=== PATIENT | male | born 1990 | race Caucasian/White ===

== ENCOUNTER 2020-05-17 05:04 | Inpatient (IN) | payer BC ==
[2020-05-17] MEDS ORDERED: Acetaminophen 500 MG Tab PO ONE (05:25)
[2020-05-17] MEDS ORDERED: Sodium Chloride 0.9% 1,000 ML IV ONE (05:25)
[2020-05-17] MEDS ORDERED: Ondansetron 4 MG/2 ML SDV IVPUSH ONE (05:29)
--- NOTE | 2020-05-17 05:31 | EDM.PDOC ---
<Isaac Bolton - Last Filed: 05/17/20 06:01> ED HPI GENERAL MEDICAL PROBLEM - General Chief Complaint: Respiratory Problem Stated Complaint: SOB(COVID POSITIVE) Time Seen by Provider: 05/17/20 05:28 Source of Information: Reports: Patient History Limitations: Reports: No Limitations - History of Present Illness INITIAL COMMENTS - FREE TEXT/NARRATIVE: Patient is a 29-year-old male who presents today for shortness of breath. Patient he tested positive for Covid Anahi and was sent home with steroids albuterol and antibiotics. Patient states has been using medications at home but since yesterday has been having a hard time breathing feeling as if he cannot take a deep breath. Patient denies any chest pain fevers chills or nausea vomiting. Patient has been able to tolerate p.o. but has not been eating as much as she normally does. - Related Data Allergies Allergy/AdvReac Type Severity Reaction Status Date / Time amoxicillin Allergy Cannot Verified 07/01/16 15:00 Remember morphine Allergy Hives Verified 07/01/16 15:00 Penicillins Allergy Cannot Verified 07/01/16 15:00 Remember Sulfa (Sulfonamide Allergy Cannot Verified 07/01/16 15:00 Antibiotics) Remember mushroom Allergy Other Uncoded 12/02/14 04:11 tuna Allergy Other Uncoded 12/02/14 04:11 Home Meds: Home Meds Albuterol [Ventolin HFA] 2 inh INH Q2HR PRN 12/02/14 [History] Budesonide/Formoterol Fumarate [Symbicort 160-4.5 Mcg Inhaler] 2 puff IH BID #1 canister 07/01/16 [Rx] Doxycycline Monohydrate 100 mg PO BID 05/17/20 [History] predniSONE [Prednisone] 20 mg PO DAILY 05/17/20 [History] Past Medical History - Past Health History Medical/Surgical History: Denies Medical/Surgical History HEENT History: Reports: None Cardiovascular History: Reports: None Respiratory History: Reports: Asthma Gastrointestinal History: Reports: None Genitourinary History: Reports: None Musculoskeletal History: Reports: None Neurological History: Reports: None Psychiatric History: Reports: None Endocrine/Metabolic History: Reports: Obesity/BMI 30+ Hematologic History: Reports: None Immunologic History: Reports: None Oncologic (Cancer) History: Reports: None Dermatologic History: Reports: None - Infectious Disease History Infectious Disease History: Reports: Chicken Pox - Past Surgical History Head Surgeries/Procedures: Reports: None Musculoskeletal Surgical History: Reports: Other (See Below) Other Musculoskeletal Surgeries/Procedures:: left wrist surgery for growth plate displacement Social & Family History - Family History Family Medical History: No Pertinent Family History - Caffeine Use Caffeine Use: Reports: Soda - Recreational Drug Use Recreational Drug Use: No ED ROS GENERAL - Review of Systems Review Of Systems: See Below Constitutional: Reports: No Symptoms HEENT: Reports: No Symptoms Respiratory: Reports: Shortness of Breath Cardiovascular: Reports: No Symptoms Endocrine: Reports: No Symptoms GI/Abdominal: Reports: No Symptoms : Reports: No Symptoms Musculoskeletal: Reports: No Symptoms Skin: Reports: No Symptoms Neurological: Reports: No Symptoms Psychiatric: Reports: No Symptoms Hematologic/Lymphatic: Reports: No Symptoms Immunologic: Reports: No Symptoms ED EXAM, GENERAL - Physical Exam Exam: See Below Exam Limited By: No Limitations General Appearance: Alert, No Apparent Distress Eye Exam: Bilateral Eye: EOMI, PERRL Respiratory/Chest: No Respiratory Distress, Lungs Clear Cardiovascular: Regular Rate, Rhythm GI/Abdominal: Normal Bowel Sounds, Soft, Non-Tender Extremities: Normal Range of Motion Neurological: Alert, Oriented, CN II-XII Intact, Normal Cognition Course - Re-Assessments/Exams Free Text/Narrative Re-Assessment/Exam: 05/17/20 06:01 Patient does have elevated D-dimer. Will send for a CT PE. Departure - Departure Disposition: Admitted As Inpatient 67 Clinical Impression: Pneumonia, COVID-19, Failure of outpatient treatment, Hypoxia - Discharge Information Instructions: COVID-19 Referrals: Anabela Martinez DO [Primary Care Provider] - Forms: ED Department Discharge Sepsis Event Note (ED) - Evaluation Sepsis Screening Result: Possible Sepsis Risk - Assessment/Plan Plan: Is a 29-year-old male who recently test positive Covid presents today for shortness of breath. When patient arrived to the ED his O2 sat was 79% on room air after walking from the front to the room. Patient was placed on a nonrebreather and oxygen level improved to 99% patient was then transitioned to a nasal cannula of oxygen level was 93%. Patient will have Tylenol labs IV fluids antibiotics and reassess. <Raul Murillo - Last Filed: 05/17/20 07:53> #1 Interpretation EKG Interpretation Comments: Heart rate = 104 bpm, sinus tach, normal QRS interval, no STEMI. EKG and rhythm strip interpreted by me at 0549 Course - Vital Signs Last Recorded V/S: Last Vital Signs Temp 100.4 F 05/17/20 07:09 Pulse 103 H 05/17/20 07:09 Resp 20 05/17/20 07:09 BP 132/73 05/17/20 07:09 Pulse Ox 95 05/17/20 07:09 - Orders/Labs/Meds Orders: Active Orders 24 hr Category Date Time Status Patient Status [ADT] Routine ADT 05/17/20 07:49 Ordered EKG 12 Lead [EKG Documentation Completion] [RC] STAT Care 05/17/20 05:31 Active CULTURE BLOOD [BC] Stat Lab 05/17/20 05:26 Results CULTURE BLOOD [BC] Stat Lab 05/17/20 05:45 Received UA W/ADITI RFLX IF INDICATED [URIN] Stat Lab 05/17/20 05:25 Ordered Levofloxacin/Dextrose 5%-Water [Levaquin in D5W 750 MG/ Med 05/17/20 06:29 Active 150 ML] 750 mg Premix Bag 1 bag IV ONETIME Blood Culture x2 Reflex Set [OM.PC] Stat Oth 05/17/20 05:35 Ordered Medication Orders Levofloxacin/Dextrose 750 mg/ (Premix) 150 mls @ 100 mls/hr IV ONETIME ONE Stop: 05/17/20 07:58 Last Admin: 05/17/20 07:03 Dose: 100 mls/hr Documented by: FRANSISCA Labs: Laboratory Tests 05/17/20 05/17/20 05/17/20 Range/Units 05:26 05:26 05:26 WBC 4.21 (4.0-11.0) K/uL RBC 5.01 (4.50-5.90) M/uL Hgb 14.5 (13.0-17.0) g/dL Hct 45.0 (38.0-50.0) % MCV 89.8 (80.0-98.0) fL MCH 28.9 (27.0-32.0) pg MCHC 32.2 (31.0-37.0) g/dL RDW Std Deviation 44.5 (28.0-62.0) fl RDW Coeff of Mick 14 (11.0-15.0) % Plt Count 152 (150-400) K/uL MPV 10.30 (7.40-12.00) fL Neut % (Auto) 69.3 (48.0-80.0) % Lymph % (Auto) 23.8 (16.0-40.0) % Reeves % (Auto) 6.9 (0.0-15.0) % Eos % (Auto) 0.0 (0.0-7.0) % Baso % (Auto) 0.0 (0.0-1.5) % Neut # (Auto) 2.9 (1.4-5.7) K/uL Lymph # (Auto) 1.0 (0.6-2.4) K/uL Reeves # (Auto) 0.3 (0.0-0.8) K/uL Eos # (Auto) 0.0 (0.0-0.7) K/uL Baso # (Auto) 0.0 (0.0-0.1) K/uL Nucleated RBC % 0.0 /100WBC Nucleated RBCs # 0 K/uL INR 0.98 APTT 26.7 (18.6-31.3) SEC D-Dimer, Quantitative 0.62 H (0.0-0.50) mg/L FEU Sodium 139 (136-148) mmol/L Potassium 4.0 (3.5-5.1) mmol/L Chloride 102 (98-107) mmol/L Carbon Dioxide 28.8 (21.0-32.0) mmol/L BUN 13 (7.0-18.0) mg/dL Creatinine 1.1 (0.8-1.3) mg/dL Est Cr Clr Drug Dosing 112.99 mL/min Estimated GFR (MDRD) > 60.0 ml/min Glucose 118 H (74-106) mg/dL Calcium 8.5 (8.5-10.1) mg/dL Total Bilirubin 0.8 (0.2-1.0) mg/dL AST 42 H (15-37) IU/L ALT 50 (14-63) IU/L Alkaline Phosphatase 50 (46-116) U/L Creatine Kinase 98 (26-308) U/L Troponin I < 0.050 (0.000-0.056) ng/mL Total Protein 6.9 (6.4-8.2) g/dL Albumin 3.0 L (3.4-5.0) g/dL Globulin 3.9 (2.6-4.0) g/dL Albumin/Globulin Ratio 0.8 L (0.9-1.6) Meds: Medications Generic Name Dose Route Start Last Admin Trade Name Freq PRN Reason Stop Dose Admin Levofloxacin/Dextrose 750 mg/ 150 mls @ 100 mls/hr 05/17/20 06:29 05/17/20 07:03 Premix IV 05/17/20 07:58 100 mls/hr ONETIME ONE Administration Discontinued Medications Generic Name Dose Route Start Last Admin Trade Name Freq PRN Reason Stop Dose Admin Acetaminophen 1,000 mg 05/17/20 05:25 05/17/20 05:39 Tylenol Extra Strength PO 05/17/20 05:26 1,000 mg ONETIME ONE Administration Sodium Chloride 1,000 mls @ 999 mls/hr 05/17/20 05:25 05/17/20 05:36 Normal Saline IV 05/17/20 06:25 999 mls/hr .BOLUS ONE Administration Iopamidol 100 ml 05/17/20 07:06 05/17/20 07:07 Isovue Multipack-370 (76%) IVPUSH 05/17/20 07:07 100 ml ONETIME STA Administration Ondansetron HCl 4 mg 05/17/20 05:29 05/17/20 05:39 Zofran IVPUSH 05/17/20 05:30 4 mg ONETIME ONE Administration - Re-Assessments/Exams Free Text/Narrative Re-Assessment/Exam: 05/17/20 0700 This patient was signed out to me from Dr. Bolton at this time. I promptly performed a detailed physical examination, my examination was performed after ED treatments were initiated by the signout provider. Patient has been under the care of the previous provider up until this point. 05/17/[address] Yanes, who agrees to admit patient. The hospitalist's documentation supersedes all other documentation on this patient with regard to any conflicts or discrepancies from this point forward. Any emergency conditions have been treated to the ability of the ED prior to admission. Departure - Departure Time of Disposition: 07:52 Condition: Good - Discharge Information *PRESCRIPTION DRUG MONITORING PROGRAM REVIEWED*: Not Applicable *COPY OF PRESCRIPTION DRUG MONITORING REPORT IN PATIENT NELLIE: Not Applicable Critical Care Note - Critical Care Note Total Time (mins): 40 Comments: CRITCAL CARE: The high probability of sudden, clinically significant deterioration in the patient's condition required the highest level of my preparedness to intervene urgently. The services I provided to this patient were to treat and/or prevent clinically significant deterioration. Services included the following: chart data review, reviewing nursing notes and/or old charts, documentation time, data power consultant collaboration regarding findings and treatment options, medication orders and management, direct patient care, vital sign assessments and ordering, interpreting and reviewing diagnostic studies/lab tests. Aggregate critical care time includes only time during which I was engaged in work directly related to the patient's care, as described above, whether at the bedside or elsewhere in the Emergency Department. It did not include time spent performing other reported procedures or the services of residents, students, nurses or physician assistants. Frequent interventions and/or frequent repeat evaluations were required as well as counseling and coordination of care regarding prognosis, treatments, and discussions with patient, staff and consultants. Critical Care (excluding other procedures): 40 minutes Sepsis Event Note (ED) - Focused Exam Vital Signs: Vital Signs Temp Temp Pulse Resp BP Pulse Ox 05/17/20 07:09 100.4 F 103 H 20 132/73 95 05/17/20 06:18 99.8 F 103 H 20 158/89 H 95 05/17/20 05:39 103 F H 05/17/20 05:18 103 F H 117 H 40 H 158/89 H 72 L - My Orders Last 24 Hours: My Active Orders 05/17/20 07:49 Patient Status [ADT] Routine - Assessment/Plan Last 24 Hours: My Active Orders 05/17/20 07:49 Patient Status [ADT] Routine
[2020-05-17 05:50] LABS: BLOOD UREA NITROGEN,BUN 13 mg/dL (7.0-18.0); CARBON DIOXIDE,CO2 28.8 mmol/L (21.0-32.0); GLUCOSE RANDOM 118 mg/dL (74-106)
[2020-05-17 05:54] LABS: CHLORIDE,CL 102 mmol/L (98-107); SODIUM,NA 139 mmol/L (136-148)
--- NOTE | 2020-05-17 06:26 | CR ---
INDICATION: COVID positive with hypoxia COMPARISON: December 02, 2014 TECHNIQUE: Single-view chest radiograph obtained portably FINDINGS: TUBES AND LINES: None. HEART AND MEDIASTINUM: The heart size is normal. The mediastinal contour appears normal for patient age. LUNGS AND PLEURAL SPACES: Moderate diffuse multifocal airspace disease bilaterally, right greater than left.The pleural spaces are unremarkable. OSSEOUS STRUCTURES: Age-appropriate appearance. No acute focal finding. IMPRESSION: Moderate diffuse multifocal airspace disease bilaterally, right greater than left. No pleural effusion or pneumothorax. Nonspecific but compatible with the clinical history of COVID lung disease Dictated by Henrique Burton MD @ May 17 2020 6:23AM Signed by Dr. Henrique Burton @ May 17 2020 6:24AM
[2020-05-17] MEDS ORDERED: Levofloxacin/Dextrose 5%-Water 750 MG in Premix Bag 1 BAG IV ONE (06:29)
[2020-05-17] MEDS ORDERED: Iopamidol 755 MG/ML 500 ML Multipack Bottle IVPUSH STA (07:06)
--- NOTE | 2020-05-17 07:30 | CT ---
INDICATION: Dyspnea and elevated D-dimer. COVID positive. COMPARISON: None TECHNIQUE: : CT examination of the chest was performed with the uneventful intravenous administration of 100 cc of Isovue 370 while thin axial sections were obtained from above the apices of the lungs to the lung bases. Please note that all CT scans at this facility use dose modulation, iterative reconstruction, and/or weight-based dosing when appropriate to reduce radiation dose to as low as reasonably achievable. FINDINGS: : HEART and MEDIASTINUM: The heart size is normal. There is no mediastinal or hilar adenopathy or mass. There is no pericardial effusion. PULMONARY ARTERIAL CIRCULATION: The study is limited due to respiratory motion artifact and significant soft tissue attenuation associated with patient`s body habitus. I see no large central pulmonary embolus. Smaller more peripheral emboli might be inapparent on this study. LUNGS: Moderate diffuse multifocal ground-glass opacities in a roughly bilateral and symmetric distribution. Nonspecific but probably due to COVID related lung disease. PLEURAL SPACES: There is no pleural effusion, pneumothorax or pleural based mass. VISUALIZED UPPER ABDOMEN: Hepatic steatosis. Otherwise, the limited visualized upper abdominal structures appear normal. OSSEOUS STRUCTURES: Age-appropriate appearance. No acute fracture or destructive process. TUBES and LINES: None. IMPRESSION: 1. Moderate diffuse multifocal ground-glass opacification. Normal appearing pleural spaces. The pattern is nonspecific but probably due to COVID related lung disease. 2. The study is limited due to technical factors discussed above regarding the presence or absence of pulmonary embolic disease. I see no large central pulmonary embolus. Smaller more peripheral emboli might be inapparent on this study. Please note that all CT scans at this facility use dose modulation, iterative reconstruction, and/or weight-based dosing when appropriate to reduce radiation dose to as low as reasonably achievable. Dictated by Henrique Burton MD @ May 17 2020 7:22AM Signed by Dr. Henrique Burton @ May 17 2020 7:27AM
[2020-05-17] MEDS ORDERED: Acetaminophen 325 MG Tab PO PRN (08:00)
[2020-05-17] MEDS ORDERED: Enoxaparin 40 MG/0.4 ML Syringe SUBCUT SCH (08:00)
[2020-05-17] MEDS ORDERED: REMDESIVIR 200 MG in Sodium Chloride 0.9% 250 ML IV ONE (08:02)
[2020-05-17] MEDS ORDERED: Albuterol/Ipratropium 4 GM Inhalation Spray INH PRN (08:02)
--- NOTE | 2020-05-17 08:04 | PCM.HP.2 ---
<Jovi Perea - Last Filed: 05/17/20 16:53> H&P History of Present Illness - General Date of Service: 05/17/20 Admit Problem/Dx: Admission Diagnosis/Problem Admission Diagnosis/Problem Pneumonia - History of Present Illness Initial Comments - Free Text/Narative: 29 year old male admitted for acute hypoxic respiratory failure secondary to COVID-19 infection. Patient states that he tested positive for Covid this past Sunday and was treated with steroids, albuterol, antibiotics. Patient presented to the ED with significant shortness of breath despite using all prescribed medications. Patient denies chest pain, fever, chills, nausea, vomiting, diarrhea. Patient states decreased appetite. PMH asthma. On admission patient required 5 L oxygen via nasal cannula with oxygen saturati on 94%. WBC 4.2, D-dimer elevated 0.62, CTA negative for pulmonary embolism but does show moderate diffuse multifocal groundglass opacifications, suggestive of COVID-19 infection. Patient started on remdesivir, dexamethasone, Combivent, Lovenox 40mg BID, oxygen support, encouraged to use incentive spirometry. - Related Data Allergies/Adverse Reactions: Allergies Allergy/AdvReac Type Severity Reaction Status Date / Time amoxicillin Allergy Cannot Verified 05/17/20 09:44 Remember morphine Allergy Hives Verified 05/17/20 09:44 Penicillins Allergy Cannot Verified 05/17/20 09:44 Remember Sulfa (Sulfonamide Allergy Cannot Verified 05/17/20 09:44 Antibiotics) Remember mushroom Allergy Other Uncoded 05/17/20 09:44 tuna Allergy Other Uncoded 05/17/20 09:44 Home Medications: Home Meds Albuterol [Ventolin HFA] 2 inh INH Q4H PRN 12/02/14 [History] Budesonide/Formoterol Fumarate [Symbicort 160-4.5 Mcg Inhaler] 2 puff IH BID #1 canister 07/01/16 [Rx] Doxycycline Monohydrate 100 mg PO BID 05/17/20 [History] predniSONE [Prednisone] 20 mg PO DAILY 05/17/20 [History] Past Medical History - Past Health History Medical/Surgical History: Denies Medical/Surgical History HEENT History: Reports: None Cardiovascular History: Reports: None Respiratory History: Reports: Asthma Gastrointestinal History: Reports: None Genitourinary History: Reports: None Musculoskeletal History: Reports: None Neurological History: Reports: None Psychiatric History: Reports: None Endocrine/Metabolic History: Reports: Obesity/BMI 30+ Hematologic History: Reports: None Immunologic History: Reports: None Oncologic (Cancer) History: Reports: None Dermatologic History: Reports: None - Infectious Disease History Infectious Disease History: Reports: Chicken Pox - Past Surgical History Head Surgeries/Procedures: Reports: None Musculoskeletal Surgical History: Reports: Other (See Below) Other Musculoskeletal Surgeries/Procedures:: left wrist surgery for growth plate displacement Social & Family History - Family History Family Medical History: No Pertinent Family History - Caffeine Use Caffeine Use: Reports: Soda - Recreational Drug Use Recreational Drug Use: No H&P Review of Systems - Review of Systems: Review Of Systems: See Below General: Denies: Fever, Chills Pulmonary: Reports: Shortness of Breath. Denies: Wheezing Cardiovascular: Denies: Chest Pain, Palpitations Gastrointestinal: Reports: Decreased Appetite. Denies: Abdominal Pain, Diarrhea Musculoskeletal: Denies: Back Pain Neurological: Denies: Confusion, Dizziness, Headache Exam - Exam Exam: See Below - Vital Signs Vital Signs: Last Vital Signs Temp 100.4 F 05/17/20 07:09 Pulse 103 H 05/17/20 07:09 Resp 20 05/17/20 07:09 BP 132/73 05/17/20 07:09 Pulse Ox 95 05/17/20 07:09 Weight: 170.097 kg - Exam General: Alert, Oriented Lungs: Clear to Auscultation, Normal Respiratory Effort Cardiovascular: Regular Rate, Regular Rhythm GI/Abdominal Exam: Normal Bowel Sounds, Non-Tender Neuro Extensive - Mental Status: Alert, Oriented x3 Psychiatric: Alert - Patient Data Lab Results Last 24 hrs: Laboratory Results - last 24 hr 05/17/20 05/17/20 05/17/20 Range/Units 05:26 05:26 05:26 WBC 4.21 (4.0-11.0) K/uL RBC 5.01 (4.50-5.90) M/uL Hgb 14.5 (13.0-17.0) g/dL Hct 45.0 (38.0-50.0) % MCV 89.8 (80.0-98.0) fL MCH 28.9 (27.0-32.0) pg MCHC 32.2 (31.0-37.0) g/dL RDW Std Deviation 44.5 (28.0-62.0) fl RDW Coeff of Mick 14 (11.0-15.0) % Plt Count 152 (150-400) K/uL MPV 10.30 (7.40-12.00) fL Neut % (Auto) 69.3 (48.0-80.0) % Lymph % (Auto) 23.8 (16.0-40.0) % [place] % (Auto) 6.9 (0.0-15.0) % Eos % (Auto) 0.0 (0.0-7.0) % Baso % (Auto) 0.0 (0.0-1.5) % Neut # (Auto) 2.9 (1.4-5.7) K/uL Lymph # (Auto) 1.0 (0.6-2.4) K/uL [place] # (Auto) 0.3 (0.0-0.8) K/uL Eos # (Auto) 0.0 (0.0-0.7) K/uL Baso # (Auto) 0.0 (0.0-0.1) K/uL Nucleated RBC % 0.0 /100WBC Nucleated RBCs # 0 K/uL INR 0.98 APTT 26.7 (18.6-31.3) SEC D-Dimer, Quantitative 0.62 H (0.0-0.50) mg/L FEU Sodium 139 (136-148) mmol/L Potassium 4.0 (3.5-5.1) mmol/L Chloride 102 (98-107) mmol/L Carbon Dioxide 28.8 (21.0-32.0) mmol/L BUN 13 (7.0-18.0) mg/dL Creatinine 1.1 (0.8-1.3) mg/dL Est Cr Clr Drug Dosing 112.99 mL/min Estimated GFR (MDRD) > 60.0 ml/min Glucose 118 H (74-106) mg/dL Calcium 8.5 (8.5-10.1) mg/dL Total Bilirubin 0.8 (0.2-1.0) mg/dL AST 42 H (15-37) IU/L ALT 50 (14-63) IU/L Alkaline Phosphatase 50 (46-116) U/L Creatine Kinase 98 (26-308) U/L Troponin I < 0.050 (0.000-0.056) ng/mL Total Protein 6.9 (6.4-8.2) g/dL Albumin 3.0 L (3.4-5.0) g/dL Globulin 3.9 (2.6-4.0) g/dL Albumin/Globulin Ratio 0.8 L (0.9-1.6) Result Diagrams: 05/17/20 05:26 05/17/20 05:26 Ricardo Results Last 24 hrs: Microbiology 05/17/20 05:26 Anaerobic Blood Culture - Final Blood - Venous Sepsis Event Note - Evaluation Sepsis Screening Result: Possible Sepsis Risk - Focused Exam Vital Signs: Vital Signs Temp Temp Pulse Resp BP Pulse Ox 05/17/20 07:09 100.4 F 103 H 20 132/73 95 05/17/20 06:18 99.8 F 103 H 20 158/89 H 95 05/17/20 05:39 103 F H 05/17/20 05:18 103 F H 117 H 40 H 158/89 H 72 L - Problem List (1) COVID-19 SNOMED Code(s): 858763943 ICD Code: U07.1 - COVID-19 Status: Acute Current Visit: Yes (2) Failure of outpatient treatment SNOMED Code(s): 486179870 ICD Code: Z78.9 - OTHER SPECIFIED HEALTH STATUS Status: Acute Current Visit: Yes (3) Hypoxia SNOMED Code(s): 873970842 ICD Code: R09.02 - HYPOXEMIA Status: Acute Current Visit: Yes (4) Pneumonia SNOMED Code(s): 097048351 ICD Code: J18.9 - PNEUMONIA, UNSPECIFIED ORGANISM Status: Acute Current Visit: Yes Problem List Initiated/Reviewed/Updated: Yes Orders Last 24hrs: Active Orders 24 hr Category Date Time Status Patient Status [ADT] Routine ADT 05/17/20 07:49 Active Oxygen Therapy [RC] PRN Care 05/17/20 08:00 Ordered RT Post Treatment Assessment [RC] Click to Edit Care 05/17/20 08:03 Ordered RT Pre-Treatment Assessment [RC] Click to Edit Care 05/17/20 08:03 Ordered VTE/DVT Education [RC] PER UNIT ROUTINE Care 05/17/20 08:00 Ordered Heart Healthy Diet [DIET] Diet 05/17/20 Breakfast Ordered CULTURE BLOOD [BC] Stat Lab 05/17/20 05:26 Results CULTURE BLOOD [BC] Stat Lab 05/17/20 05:45 Received HEPATIC FUNCTION PANEL,[facility] [CHEM] DAILY Lab 05/18/20 08:15 Ordered HEPATIC FUNCTION PANEL,HFP [CHEM] DAILY Lab 05/19/20 08:15 Ordered HEPATIC FUNCTION PANEL,HFP [CHEM] DAILY Lab 05/20/20 08:15 Ordered HEPATIC FUNCTION PANEL,HFP [CHEM] DAILY Lab 05/21/20 08:15 Ordered HEPATIC FUNCTION PANEL,[facility] [CHEM] Stat Lab 05/17/20 08:02 Ordered UA W/RICARDO RFLX IF INDICATED [URIN] Stat Lab 05/17/20 05:25 Ordered Acetaminophen [TylenoL] Med 05/17/20 08:00 Ordered 650 mg PO Q4H PRN Albuterol/Ipratropium [Combivent Respimat] Med 05/17/20 08:02 Ordered See Dose Instructions INH Q4H PRN Enoxaparin [Lovenox] Med 05/17/20 08:00 Ordered 40 mg SUBCUT Q24H Remdesivir 200 mg Med 05/17/20 08:02 Ordered Sodium Chloride 0.9% [Normal Saline] 250 ml IV ONETIME dexAMETHasone Med 05/17/20 09:00 Ordered 6 mg PO DAILY Blood Culture x2 Reflex Set [OM.PC] Stat Oth 05/17/20 05:35 Ordered Medication Orders Acetaminophen (Tylenol) 650 mg PO Q4H PRN PRN Reason: Pain (Mild 1-3)/fever Albuterol/Ipratropium (Combivent Respimat) 0 gm INH Q4H PRN PRN Reason: Dyspnea Dexamethasone (Dexamethasone) 6 mg PO DAILY MARYANA Enoxaparin Sodium (Lovenox) 40 mg SUBCUT Q24H MARYANA Remdesivir 200 mg/ Sodium (Chloride) 250 mls @ 250 mls/hr IV ONETIME ONE Stop: 05/17/20 08:03 Assessment/Plan Comment:: COVID-19 infection remdesivir, dexamethasone, Combivent, Lovenox 40 mg BID, encourage incentive spirometry, oxygen support as needed, telemetry <Vicky Yanes - Last Filed: 05/18/20 12:45> H&P History of Present Illness - General Admit Problem/Dx: Admission Diagnosis/Problem Admission Diagnosis/Problem Pneumonia Exam - Vital Signs Vital Signs: Last Vital Signs Temp 37.1 C 05/18/20 11:57 Pulse 98 05/18/20 11:57 Resp 20 05/18/20 11:57 BP 138/61 05/18/20 11:57 Pulse Ox 92 L 05/18/20 11:57 - Patient Data Lab Results Last 24 hrs: Laboratory Results - last 24 hr 05/18/20 05/18/20 Range/Units 06:03 06:03 WBC 4.65 (4.0-11.0) K/uL RBC 4.63 (4.50-5.90) M/uL Hgb 13.4 (13.0-17.0) g/dL Hct 42.3 (38.0-50.0) % MCV 91.4 (80.0-98.0) fL MCH 28.9 (27.0-32.0) pg MCHC 31.7 (31.0-37.0) g/dL RDW Std Deviation 45.7 (28.0-62.0) fl RDW Coeff of Mick 14 (11.0-15.0) % Plt Count 160 (150-400) K/uL MPV 10.50 (7.40-12.00) fL Neut % (Auto) 68.4 (48.0-80.0) % Lymph % (Auto) 22.4 (16.0-40.0) % [place] % (Auto) 9.0 (0.0-15.0) % Eos % (Auto) 0.0 (0.0-7.0) % Baso % (Auto) 0.2 (0.0-1.5) % Neut # (Auto) 3.2 (1.4-5.7) K/uL Lymph # (Auto) 1.0 (0.6-2.4) K/uL [place] # (Auto) 0.4 (0.0-0.8) K/uL Eos # (Auto) 0.0 (0.0-0.7) K/uL Baso # (Auto) 0.0 (0.0-0.1) K/uL Nucleated RBC % 0.0 /100WBC Nucleated RBCs # 0 K/uL Sodium 139 (136-148) mmol/L Potassium 3.6 (3.5-5.1) mmol/L Chloride 102 (98-107) mmol/L Carbon Dioxide 30.0 (21.0-32.0) mmol/L BUN 15 (7.0-18.0) mg/dL Creatinine 1.0 (0.8-1.3) mg/dL Est Cr Clr Drug Dosing 124.29 mL/min Estimated GFR (MDRD) > 60.0 ml/min Glucose 102 (74-106) mg/dL Calcium 8.1 L (8.5-10.1) mg/dL Total Bilirubin 0.8 (0.2-1.0) mg/dL AST 40 H (15-37) IU/L ALT 43 (14-63) IU/L Alkaline Phosphatase 42 L (46-116) U/L Total Protein 6.2 L (6.4-8.2) g/dL Albumin 2.7 L (3.4-5.0) g/dL Globulin 3.5 (2.6-4.0) g/dL Albumin/Globulin Ratio 0.8 L (0.9-1.6) Result Diagrams: 05/18/20 06:03 05/18/20 06:03 Ricardo Results Last 24 hrs: Microbiology 05/17/20 05:45 Aerobic Blood Culture - Preliminary Blood - Venous - Lab Draw NO GROWTH AFTER 1 DAY Anaerobic Blood Culture - Preliminary NO GROWTH AFTER 1 DAY 05/17/20 05:26 Aerobic Blood Culture - Preliminary Blood - Venous NO GROWTH AFTER 1 DAY Anaerobic Blood Culture - Final Sepsis Event Note - Focused Exam Vital Signs: Vital Signs Temp Pulse Resp BP Pulse Ox 05/18/20 11:57 37.1 C 98 20 138/61 92 L 05/18/20 09:40 37.0 C 105 H 20 147/80 H 92 L 05/18/20 03:30 37.2 C 89 19 123/69 93 L - Problem List (1) Acute respiratory failure with hypoxia SNOMED Code(s): 30044645, 509102785 ICD Code: J96.01 - ACUTE RESPIRATORY FAILURE WITH HYPOXIA Status: Acute Current Visit: Yes (2) COVID-19 SNOMED Code(s): 550540728 ICD Code: U07.1 - COVID-19 Status: Acute Current Visit: Yes (3) Failure of outpatient treatment SNOMED Code(s): 587142578 ICD Code: Z78.9 - OTHER SPECIFIED HEALTH STATUS Status: Acute Current Visit: Yes (4) BMI 50.0-59.9, adult SNOMED Code(s): 237294717, 119742145 ICD Code: Z68.43 - BODY MASS INDEX [BMI] 50.0-59.9, ADULT Status: Acute Current Visit: Yes Orders Last 24hrs: Active Orders 24 hr Category Date Time Status HEPATIC FUNCTION PANEL,HFP [CHEM] DAILY Lab 05/19/20 08:15 Ordered HEPATIC FUNCTION PANEL,HFP [CHEM] DAILY Lab 05/20/20 08:15 Ordered HEPATIC FUNCTION PANEL,HFP [CHEM] DAILY Lab 05/21/20 08:15 Ordered Enoxaparin [Lovenox] Med 05/17/20 21:00 Active 40 mg SUBCUT BID Flu Vacc [id number](6Mos Up)/Pf [Fluzone Quad Med 05/19/20 10:30 Once Syringe] 60 mcg IM .ONCE ONE Remdesivir 100 mg Med 05/18/20 11:00 Active Sodium Chloride 0.9% [Normal Saline] 100 ml IV Q24H Code Status [Resuscitation Status] Routine Resus Stat 05/18/20 11:33 Ordered Medication Orders Acetaminophen (Tylenol) 650 mg PO Q4H PRN PRN Reason: Pain (Mild 1-3)/fever Albuterol/Ipratropium (Combivent Respimat) 0 gm INH Q4H PRN PRN Reason: Dyspnea Dexamethasone (Dexamethasone) 6 mg PO DAILY [facility] Last Admin: 05/18/20 09:43 Dose: 6 mg Documented by: Admin: 05/17/20 09:00 Dose: 6 mg Documented by: THU Enoxaparin Sodium (Lovenox) 40 mg SUBCUT BID [facility] Last Admin: 05/18/20 09:44 Dose: 40 mg Documented by: Admin: 05/17/20 21:05 Dose: 40 mg Documented by: HILARY Remdesivir 100 mg/ Sodium (Chloride) 100 mls @ 100 mls/hr IV Q24H [facility] Stop: 05/21/20 11:59 Last Admin: 05/18/20 11:56 Dose: 100 mls/hr Documented by: JAMIL Influenza Virus Vaccine (Fluzone Quad Syringe) 60 mcg IM .ONCE ONE Stop: 05/19/20 10:31 Assessment/Plan Comment:: I performed a history and physical exam of the patient and discussed management with resident. I have reviewed the residents note and agree with documented findings and plan unless otherwise specified in my note.
[2020-05-17] MEDS: Dexamethasone 4 MG Tab PO SCH (09:00)
--- NOTE | 2020-05-17 19:06 | PCM.SN.2 ---
<Jovi Perea - Last Filed: 05/17/20 19:04> - Free Text/Narrative Note: Patient has denied convalescent plasma. Patient has apprehensions due to side effects, risk versus reward. All of patient's questions were answered and patient was made aware that convalescent plasma needs to be given as close as possible to the time of COVID-19 infection to be effective. Patient understands, still declines. <Vicky Yanes - Last Filed: 05/18/20 12:24> - Free Text/Narrative Note: I have seen and evaluated the patient and agree with the residents note unless specified in my note
[2020-05-17] MEDS: Enoxaparin 40 MG/0.4 ML Syringe SUBCUT SCH (21:05)
[2020-05-18 06:53] LABS: BLOOD UREA NITROGEN,BUN 15 mg/dL (7.0-18.0); CHLORIDE,CL 102 mmol/L (98-107); GLUCOSE RANDOM 102 mg/dL (74-106); POTASSIUM,K 3.6 mmol/L (3.5-5.1); SODIUM,NA 139 mmol/L (136-148)
[2020-05-18] MEDS: Dexamethasone 4 MG Tab PO SCH (09:43)
[2020-05-18] MEDS: Enoxaparin 40 MG/0.4 ML Syringe SUBCUT SCH ×2 (09:44→20:53)
[2020-05-18] MEDS: REMDESIVIR 100 MG in Sodium Chloride 0.9% 100 ML IV SCH (11:56)
[2020-05-18] MEDS ORDERED: REMDESIVIR 100 MG in Sodium Chloride 0.9% 100 ML IV SCH (12:00)
--- NOTE | 2020-05-18 22:50 | PCM.PN ---
<Jovi Perea - Last Filed: 05/18/20 20:48> - General Info Date of Service: 05/18/20 Subjective Update: Patient denies fever, chills, nausea, vomiting, diarrhea. Patient still states shortness of breath especially with ambulation. - Review of Systems General: Denies: Fever, Chills Pulmonary: Reports: Shortness of Breath (with ambulation). Denies: Cough Cardiovascular: Reports: Dyspnea on Exertion. Denies: Chest Pain, Palpitations Gastrointestinal: Denies: Abdominal Pain, Decreased Appetite, Diarrhea Neurological: Denies: Confusion, Dizziness, Headache - Patient Data Vitals - Most Recent: Last Vital Signs Temp 97.5 F 05/18/20 17:06 Pulse 92 05/18/20 17:06 Resp 20 05/18/20 17:06 BP 132/84 05/18/20 17:06 Pulse Ox 92 L 05/18/20 17:06 Weight - Most Recent: 185.066 kg I&O - Last 24 Hours: Intake & Output 05/18/20 05/18/20 05/18/20 06:59 14:59 22:59 Intake Total 1500 580 Output Total 0 Balance 1500 580 Lab Results Last 24 Hours: Laboratory Results - last 24 hr 05/18/20 05/18/20 Range/Units 06:03 06:03 WBC 4.65 (4.0-11.0) K/uL RBC 4.63 (4.50-5.90) M/uL Hgb 13.4 (13.0-17.0) g/dL Hct 42.3 (38.0-50.0) % MCV 91.4 (80.0-98.0) fL MCH 28.9 (27.0-32.0) pg MCHC 31.7 (31.0-37.0) g/dL RDW Std Deviation 45.7 (28.0-62.0) fl RDW Coeff of Mick 14 (11.0-15.0) % Plt Count 160 (150-400) K/uL MPV 10.50 (7.40-12.00) fL Neut % (Auto) 68.4 (48.0-80.0) % Lymph % (Auto) 22.4 (16.0-40.0) % [place] % (Auto) 9.0 (0.0-15.0) % Eos % (Auto) 0.0 (0.0-7.0) % Baso % (Auto) 0.2 (0.0-1.5) % Neut # (Auto) 3.2 (1.4-5.7) K/uL Lymph # (Auto) 1.0 (0.6-2.4) K/uL [place] # (Auto) 0.4 (0.0-0.8) K/uL Eos # (Auto) 0.0 (0.0-0.7) K/uL Baso # (Auto) 0.0 (0.0-0.1) K/uL Nucleated RBC % 0.0 /100WBC Nucleated RBCs # 0 K/uL Sodium 139 (136-148) mmol/L Potassium 3.6 (3.5-5.1) mmol/L Chloride 102 (98-107) mmol/L Carbon Dioxide 30.0 (21.0-32.0) mmol/L BUN 15 (7.0-18.0) mg/dL Creatinine 1.0 (0.8-1.3) mg/dL Est Cr Clr Drug Dosing 124.29 mL/min Estimated GFR (MDRD) > 60.0 ml/min Glucose 102 (74-106) mg/dL Calcium 8.1 L (8.5-10.1) mg/dL Total Bilirubin 0.8 (0.2-1.0) mg/dL AST 40 H (15-37) IU/L ALT 43 (14-63) IU/L Alkaline Phosphatase 42 L (46-116) U/L Total Protein 6.2 L (6.4-8.2) g/dL Albumin 2.7 L (3.4-5.0) g/dL Globulin 3.5 (2.6-4.0) g/dL Albumin/Globulin Ratio 0.8 L (0.9-1.6) Ricardo Results Last 24 Hours: Microbiology 05/17/20 05:45 Aerobic Blood Culture - Preliminary Blood - Venous - Lab Draw NO GROWTH AFTER 1 DAY Anaerobic Blood Culture - Preliminary NO GROWTH AFTER 1 DAY 05/17/20 05:26 Aerobic Blood Culture - Preliminary Blood - Venous NO GROWTH AFTER 1 DAY Anaerobic Blood Culture - Final Med Orders - Current: Current Medications Acetaminophen (Tylenol) 650 mg PO Q4H PRN PRN Reason: Pain (Mild 1-3)/fever Albuterol/Ipratropium (Combivent Respimat) 0 gm INH Q4H PRN PRN Reason: Dyspnea Dexamethasone (Dexamethasone) 6 mg PO DAILY [facility] Last Admin: 05/18/20 09:43 Dose: 6 mg Documented by: Enoxaparin Sodium (Lovenox) 40 mg SUBCUT BID [facility] Last Admin: 05/18/20 09:44 Dose: 40 mg Documented by: Remdesivir 100 mg/ Sodium (Chloride) 100 mls @ 100 mls/hr IV Q24H [facility] Stop: 05/21/20 11:59 Last Admin: 05/18/20 11:56 Dose: 100 mls/hr Documented by: Influenza Virus Vaccine (Fluzone Quad Syringe) 60 mcg IM .ONCE ONE Stop: 05/19/20 10:31 Discontinued Medications Acetaminophen (Tylenol Extra Strength) 1,000 mg PO ONETIME ONE Stop: 05/17/20 05:26 Last Admin: 05/17/20 05:39 Dose: 1,000 mg Documented by: Enoxaparin Sodium (Lovenox) 40 mg SUBCUT Q24H [facility] Last Admin: 05/17/20 09:01 Dose: 40 mg Documented by: Sodium Chloride (Normal Saline) 1,000 mls @ 999 mls/hr IV .BOLUS ONE Stop: 05/17/20 06:25 Last Admin: 05/17/20 05:36 Dose: 999 mls/hr Documented by: Levofloxacin/Dextrose 750 mg/ (Premix) 150 mls @ 100 mls/hr IV ONETIME ONE Stop: 05/17/20 07:58 Last Admin: 05/17/20 07:03 Dose: 100 mls/hr Documented by: Remdesivir 200 mg/ Sodium (Chloride) 250 mls @ 250 mls/hr IV ONETIME ONE Stop: 05/17/20 08:03 Last Admin: 05/17/20 10:52 Dose: 250 mls/hr Documented by: Remdesivir 100 mg/ Sodium (Chloride) 100 mls @ 100 mls/hr IV Q24H [facility] Stop: 05/21/20 12:59 Influenza Virus Vaccine (Pharmacy To Dose - Influenza Vaccine) 1 each IM ONETIME ONE Stop: 05/17/20 10:21 Iopamidol (Isovue Multipack-370 (76%)) 100 ml IVPUSH ONETIME STA Stop: 05/17/20 07:07 Last Admin: 05/17/20 07:07 Dose: 100 ml Documented by: Ondansetron HCl (Zofran) 4 mg IVPUSH ONETIME ONE Stop: 05/17/20 05:30 Last Admin: 05/17/20 05:39 Dose: 4 mg Documented by: - Exam Quality Assessment: Supplemental Oxygen General: Alert, Oriented Lungs: Clear to Auscultation, Normal Respiratory Effort Cardiovascular: Regular Rate, Regular Rhythm GI/Abdominal Exam: Normal Bowel Sounds, Soft, Non-Tender Skin: Warm Psy/Mental Status: Alert Sepsis Event Note - Evaluation Sepsis Screening Result: No Definite Risk - Focused Exam Vital Signs: Vital Signs Temp Pulse Resp BP Pulse Ox 05/18/20 17:06 97.5 F 92 20 132/84 92 L 05/18/20 11:57 98.7 F 98 20 138/61 92 L 05/18/20 09:40 98.6 F 105 H 20 147/80 H 92 L - Problem List & Annotations (1) COVID-19 SNOMED Code(s): 964768252 Code(s): U07.1 - COVID-19 Status: Acute Current Visit: Yes (2) Failure of outpatient treatment SNOMED Code(s): 955847273 Code(s): Z78.9 - OTHER SPECIFIED HEALTH STATUS Status: Acute Current Visit: Yes (3) Hypoxia SNOMED Code(s): 779881068 Code(s): R09.02 - HYPOXEMIA Status: Acute Current Visit: Yes (4) Pneumonia SNOMED Code(s): 842203721 Code(s): J18.9 - PNEUMONIA, UNSPECIFIED ORGANISM Status: Acute Current Visit: Yes - Problem List Review Problem List Initiated/Reviewed/Updated: Yes - My Orders Last 24 Hours: My Active Orders 05/17/20 21:00 Enoxaparin [Lovenox] 40 mg SUBCUT BID 05/18/20 11:00 Remdesivir 100 mg Sodium Chloride 0.9% [Normal Saline] 100 ml IV Q24H 05/18/20 11:33 Code Status [Resuscitation Status] Routine 05/19/20 05:11 CBC WITH AUTO DIFF [HEME] AM CMP [COMPREHENSIVE METABOLIC PN,CMP] [CHEM] AM 05/19/20 08:15 HEPATIC FUNCTION PANEL,HFP [CHEM] DAILY 05/20/20 08:15 HEPATIC FUNCTION PANEL,HFP [CHEM] DAILY 05/21/20 08:15 HEPATIC FUNCTION PANEL,HFP [CHEM] DAILY - Plan Plan:: COVID-19 infection remdesivir, dexamethasone, Combivent, Lovenox 40 mg BID, encourage incentive spirometry, oxygen support as needed, telemetry. Patient denied convalescent plasma. <Vicky Yanes - Last Filed: 05/19/20 21:15> - Patient Data Vitals - Most Recent: Last Vital Signs Temp 35.9 C L 05/19/20 16:05 Pulse 92 05/19/20 16:05 Resp 18 05/19/20 16:05 BP 145/81 H 05/19/20 16:05 Pulse Ox 92 L 05/19/20 16:05 I&O - Last 24 Hours: Intake & Output 05/19/20 05/19/20 05/19/20 06:59 14:59 22:59 Intake Total 600 600 Output Total 1 Balance 599 600 Lab Results Last 24 Hours: Laboratory Results - last 24 hr 05/19/20 05/19/20 Range/Units 05:11 05:11 WBC 4.94 (4.0-11.0) K/uL RBC 4.64 (4.50-5.90) M/uL Hgb 13.2 (13.0-17.0) g/dL Hct 42.2 (38.0-50.0) % MCV 90.9 (80.0-98.0) fL MCH 28.4 (27.0-32.0) pg MCHC 31.3 (31.0-37.0) g/dL RDW Std Deviation 45.0 (28.0-62.0) fl RDW Coeff of Mick 14 (11.0-15.0) % Plt Count 177 (150-400) K/uL MPV 10.10 (7.40-12.00) fL Neut % (Auto) 63.4 (48.0-80.0) % Lymph % (Auto) 28.7 (16.0-40.0) % Bennett % (Auto) 7.7 (0.0-15.0) % Eos % (Auto) 0.0 (0.0-7.0) % Baso % (Auto) 0.2 (0.0-1.5) % Neut # (Auto) 3.1 (1.4-5.7) K/uL Lymph # (Auto) 1.4 (0.6-2.4) K/uL [place] # (Auto) 0.4 (0.0-0.8) K/uL Eos # (Auto) 0.0 (0.0-0.7) K/uL Baso # (Auto) 0.0 (0.0-0.1) K/uL Nucleated RBC % 0.0 /100WBC Nucleated RBCs # 0 K/uL Sodium 140 (136-148) mmol/L Potassium 3.6 (3.5-5.1) mmol/L Chloride 103 (98-107) mmol/L Carbon Dioxide 32.7 H (21.0-32.0) mmol/L BUN 15 (7.0-18.0) mg/dL Creatinine 0.8 (0.8-1.3) mg/dL Est Cr Clr Drug Dosing 155.36 mL/min Estimated GFR (MDRD) > 60.0 ml/min Glucose 91 (74-106) mg/dL Calcium 8.2 L (8.5-10.1) mg/dL Total Bilirubin 0.7 (0.2-1.0) mg/dL AST 44 H (15-37) IU/L ALT 43 (14-63) IU/L Alkaline Phosphatase 41 L (46-116) U/L Total Protein 6.2 L (6.4-8.2) g/dL Albumin 2.6 L (3.4-5.0) g/dL Globulin 3.6 (2.6-4.0) g/dL Albumin/Globulin Ratio 0.7 L (0.9-1.6) Ricardo Results Last 24 Hours: Microbiology 05/17/20 05:45 Aerobic Blood Culture - Preliminary Blood - Venous - Lab Draw NO GROWTH AFTER 2 DAYS Anaerobic Blood Culture - Preliminary NO GROWTH AFTER 2 DAYS 05/17/20 05:26 Aerobic Blood Culture - Preliminary Blood - Venous NO GROWTH AFTER 2 DAYS Anaerobic Blood Culture - Final Med Orders - Current: Current Medications Acetaminophen (Tylenol) 650 mg PO Q4H PRN PRN Reason: Pain (Mild 1-3)/fever Albuterol/Ipratropium (Combivent Respimat) 0 gm INH Q12H [facility] Last Admin: 05/19/20 12:56 Dose: 1 puff Documented by: Dexamethasone (Dexamethasone) 6 mg PO DAILY [facility] Last Admin: 05/19/20 10:18 Dose: 6 mg Documented by: Enoxaparin Sodium (Lovenox) 40 mg SUBCUT BID [facility] Last Admin: 05/19/20 10:18 Dose: 40 mg Documented by: Remdesivir 100 mg/ Sodium (Chloride) 100 mls @ 100 mls/hr IV Q24H [facility] Stop: 05/21/20 11:59 Last Admin: 05/19/20 12:15 Dose: 100 mls/hr Documented by: Discontinued Medications Acetaminophen (Tylenol Extra Strength) 1,000 mg PO ONETIME ONE Stop: 05/17/20 05:26 Last Admin: 05/17/20 05:39 Dose: 1,000 mg Documented by: Albuterol/Ipratropium (Combivent Respimat) 0 gm INH Q4H PRN PRN Reason: Dyspnea Enoxaparin Sodium (Lovenox) 40 mg SUBCUT Q24H [facility] Last Admin: 05/17/20 09:01 Dose: 40 mg Documented by: Furosemide (Lasix) 20 mg IVPUSH NOW ONE Stop: 05/19/20 11:07 Last Admin: 05/19/20 12:16 Dose: 20 mg Documented by: Sodium Chloride (Normal Saline) 1,000 mls @ 999 mls/hr IV .BOLUS ONE Stop: 05/17/20 06:25 Last Admin: 05/17/20 05:36 Dose: 999 mls/hr Documented by: Levofloxacin/Dextrose 750 mg/ (Premix) 150 mls @ 100 mls/hr IV ONETIME ONE Stop: 05/17/20 07:58 Last Admin: 05/17/20 07:03 Dose: 100 mls/hr Documented by: Remdesivir 200 mg/ Sodium (Chloride) 250 mls @ 250 mls/hr IV ONETIME ONE Stop: 05/17/20 08:03 Last Admin: 05/17/20 10:52 Dose: 250 mls/hr Documented by: Remdesivir 100 mg/ Sodium (Chloride) 100 mls @ 100 mls/hr IV Q24H [facility] Stop: 05/21/20 12:59 Influenza Virus Vaccine (Pharmacy To Dose - Influenza Vaccine) 1 each IM ONETIME ONE Stop: 05/17/20 10:21 Last Admin: 05/18/20 19:58 Dose: Not Given Documented by: Influenza Virus Vaccine (Fluzone Quad Syringe) 60 mcg IM .ONCE ONE Stop: 05/19/20 10:31 Iopamidol (Isovue Multipack-370 (76%)) 100 ml IVPUSH ONETIME STA Stop: 05/17/20 07:07 Last Admin: 05/17/20 07:07 Dose: 100 ml Documented by: Ondansetron HCl (Zofran) 4 mg IVPUSH ONETIME ONE Stop: 05/17/20 05:30 Last Admin: 05/17/20 05:39 Dose: 4 mg Documented by: Sepsis Event Note - Focused Exam Vital Signs: Vital Signs Temp Pulse Resp BP Pulse Ox 05/19/20 16:05 35.9 C L 92 18 145/81 H 92 L 05/19/20 12:14 36.4 C 88 20 145/82 H 92 L - Problem List & Annotations (1) Acute respiratory failure with hypoxia SNOMED Code(s): 15964227, 907542465 Code(s): J96.01 - ACUTE RESPIRATORY FAILURE WITH HYPOXIA Status: Acute Current Visit: Yes (2) COVID-19 SNOMED Code(s): 350429751 Code(s): U07.1 - COVID-19 Status: Acute Current Visit: Yes (3) Failure of outpatient treatment SNOMED Code(s): 668215849 Code(s): Z78.9 - OTHER SPECIFIED HEALTH STATUS Status: Acute Current Visit: Yes (4) BMI 50.0-59.9, adult SNOMED Code(s): 033484108, 951681725 Code(s): Z68.43 - BODY MASS INDEX [BMI] 50.0-59.9, ADULT Status: Acute Current Visit: Yes - Plan Plan:: I have seen and evaluated the patient and agree with the residents note unless specified in my note
[2020-05-19 05:51] LABS: BLOOD UREA NITROGEN,BUN 15 mg/dL (7.0-18.0); CARBON DIOXIDE,CO2 32.7 mmol/L (21.0-32.0); CHLORIDE,CL 103 mmol/L (98-107); GLUCOSE RANDOM 91 mg/dL (74-106); POTASSIUM,K 3.6 mmol/L (3.5-5.1); SODIUM,NA 140 mmol/L (136-148)
[2020-05-19] MEDS: Dexamethasone 4 MG Tab PO SCH (10:18)
[2020-05-19] MEDS: Enoxaparin 40 MG/0.4 ML Syringe SUBCUT SCH ×2 (10:18→22:06)
[2020-05-19] MEDS ORDERED: FLU VACC QS2020-21(6MOS UP)/PF 60 MCG/0.5 ML SYRINGE IM ONE (10:30)
[2020-05-19] MEDS ORDERED: Furosemide 20 MG/2 ML VIAL IVPUSH ONE (11:06)
[2020-05-19] MEDS: REMDESIVIR 100 MG in Sodium Chloride 0.9% 100 ML IV SCH (12:15)
[2020-05-19] MEDS: Albuterol/Ipratropium 4 GM Inhalation Spray INH SCH ×3 (12:56→22:33)
--- NOTE | 2020-05-19 14:40 | PCM.PN ---
<Jovi Perea - Last Filed: 05/19/20 14:36> - General Info Date of Service: 05/19/20 Subjective Update: Patient states shortness of breath yesterday evening while sleeping and today morning during ambulation. Patient is concerned that he is requiring slightly more oxygen today than yesterday 4 L today as opposed to 3 L yesterday. Patient states that he is using his incentive spirometry but it makes him cough at times. Denies fever, chills, nausea, vomiting. States normal appetite. - Review of Systems General: Denies: Fever, Chills Pulmonary: Reports: Shortness of Breath, Cough Cardiovascular: Reports: Dyspnea on Exertion. Denies: Chest Pain Gastrointestinal: Denies: Abdominal Pain, Nausea, Vomiting Neurological: Denies: Confusion, Dizziness, Headache - Patient Data Vitals - Most Recent: Last Vital Signs Temp 97.5 F 05/19/20 12:14 Pulse 88 05/19/20 12:14 Resp 20 05/19/20 12:14 BP 145/82 H 05/19/20 12:14 Pulse Ox 92 L 05/19/20 12:14 Weight - Most Recent: 185.066 kg I&O - Last 24 Hours: Intake & Output 05/18/20 05/19/20 05/19/20 22:59 06:59 14:59 Intake Total 580 600 Output Total 1 Balance 580 599 Lab Results Last 24 Hours: Laboratory Results - last 24 hr 05/19/20 05/19/20 Range/Units 05:11 05:11 WBC 4.94 (4.0-11.0) K/uL RBC 4.64 (4.50-5.90) M/uL Hgb 13.2 (13.0-17.0) g/dL Hct 42.2 (38.0-50.0) % MCV 90.9 (80.0-98.0) fL MCH 28.4 (27.0-32.0) pg MCHC 31.3 (31.0-37.0) g/dL RDW Std Deviation 45.0 (28.0-62.0) fl RDW Coeff of Mick 14 (11.0-15.0) % Plt Count 177 (150-400) K/uL MPV 10.10 (7.40-12.00) fL Neut % (Auto) 63.4 (48.0-80.0) % Lymph % (Auto) 28.7 (16.0-40.0) % [place] % (Auto) 7.7 (0.0-15.0) % Eos % (Auto) 0.0 (0.0-7.0) % Baso % (Auto) 0.2 (0.0-1.5) % Neut # (Auto) 3.1 (1.4-5.7) K/uL Lymph # (Auto) 1.4 (0.6-2.4) K/uL [place] # (Auto) 0.4 (0.0-0.8) K/uL Eos # (Auto) 0.0 (0.0-0.7) K/uL Baso # (Auto) 0.0 (0.0-0.1) K/uL Nucleated RBC % 0.0 /100WBC Nucleated RBCs # 0 K/uL Sodium 140 (136-148) mmol/L Potassium 3.6 (3.5-5.1) mmol/L Chloride 103 (98-107) mmol/L Carbon Dioxide 32.7 H (21.0-32.0) mmol/L BUN 15 (7.0-18.0) mg/dL Creatinine 0.8 (0.8-1.3) mg/dL Est Cr Clr Drug Dosing 155.36 mL/min Estimated GFR (MDRD) > 60.0 ml/min Glucose 91 (74-106) mg/dL Calcium 8.2 L (8.5-10.1) mg/dL Total Bilirubin 0.7 (0.2-1.0) mg/dL AST 44 H (15-37) IU/L ALT 43 (14-63) IU/L Alkaline Phosphatase 41 L (46-116) U/L Total Protein 6.2 L (6.4-8.2) g/dL Albumin 2.6 L (3.4-5.0) g/dL Globulin 3.6 (2.6-4.0) g/dL Albumin/Globulin Ratio 0.7 L (0.9-1.6) Ricardo Results Last 24 Hours: Microbiology 05/17/20 05:45 Aerobic Blood Culture - Preliminary Blood - Venous - Lab Draw NO GROWTH AFTER 2 DAYS Anaerobic Blood Culture - Preliminary NO GROWTH AFTER 2 DAYS 05/17/20 05:26 Aerobic Blood Culture - Preliminary Blood - Venous NO GROWTH AFTER 2 DAYS Anaerobic Blood Culture - Final Med Orders - Current: Current Medications Acetaminophen (Tylenol) 650 mg PO Q4H PRN PRN Reason: Pain (Mild 1-3)/fever Albuterol/Ipratropium (Combivent Respimat) 0 gm INH Q12H [facility] Last Admin: 05/19/20 12:56 Dose: 1 puff Documented by: Dexamethasone (Dexamethasone) 6 mg PO DAILY [facility] Last Admin: 05/19/20 10:18 Dose: 6 mg Documented by: Enoxaparin Sodium (Lovenox) 40 mg SUBCUT BID [facility] Last Admin: 05/19/20 10:18 Dose: 40 mg Documented by: Remdesivir 100 mg/ Sodium (Chloride) 100 mls @ 100 mls/hr IV Q24H [facility] Stop: 05/21/20 11:59 Last Admin: 05/19/20 12:15 Dose: 100 mls/hr Documented by: Discontinued Medications Acetaminophen (Tylenol Extra Strength) 1,000 mg PO ONETIME ONE Stop: 05/17/20 05:26 Last Admin: 05/17/20 05:39 Dose: 1,000 mg Documented by: Albuterol/Ipratropium (Combivent Respimat) 0 gm INH Q4H PRN PRN Reason: Dyspnea Enoxaparin Sodium (Lovenox) 40 mg SUBCUT Q24H [facility] Last Admin: 05/17/20 09:01 Dose: 40 mg Documented by: Furosemide (Lasix) 20 mg IVPUSH NOW ONE Stop: 05/19/20 11:07 Last Admin: 05/19/20 12:16 Dose: 20 mg Documented by: Sodium Chloride (Normal Saline) 1,000 mls @ 999 mls/hr IV .BOLUS ONE Stop: 05/17/20 06:25 Last Admin: 05/17/20 05:36 Dose: 999 mls/hr Documented by: Levofloxacin/Dextrose 750 mg/ (Premix) 150 mls @ 100 mls/hr IV ONETIME ONE Stop: 05/17/20 07:58 Last Admin: 05/17/20 07:03 Dose: 100 mls/hr Documented by: Remdesivir 200 mg/ Sodium (Chloride) 250 mls @ 250 mls/hr IV ONETIME ONE Stop: 05/17/20 08:03 Last Admin: 05/17/20 10:52 Dose: 250 mls/hr Documented by: Remdesivir 100 mg/ Sodium (Chloride) 100 mls @ 100 mls/hr IV Q24H [facility] Stop: 05/21/20 12:59 Influenza Virus Vaccine (Pharmacy To Dose - Influenza Vaccine) 1 each IM ONETIME ONE Stop: 05/17/20 10:21 Last Admin: 05/18/20 19:58 Dose: Not Given Documented by: Influenza Virus Vaccine (Fluzone Quad [id number] Syringe) 60 mcg IM .ONCE ONE Stop: 05/19/20 10:31 Iopamidol (Isovue Multipack-370 (76%)) 100 ml IVPUSH ONETIME STA Stop: 05/17/20 07:07 Last Admin: 05/17/20 07:07 Dose: 100 ml Documented by: Ondansetron HCl (Zofran) 4 mg IVPUSH ONETIME ONE Stop: 05/17/20 05:30 Last Admin: 05/17/20 05:39 Dose: 4 mg Documented by: - Exam Quality Assessment: Supplemental Oxygen (4L N/C) General: Alert, Oriented Lungs: Clear to Auscultation, Normal Respiratory Effort Cardiovascular: Regular Rate, Regular Rhythm GI/Abdominal Exam: Normal Bowel Sounds, Soft, Non-Tender Extremities: No Pedal Edema Sepsis Event Note - Evaluation Sepsis Screening Result: No Definite Risk - Focused Exam Vital Signs: Vital Signs Temp Pulse Resp BP Pulse Ox 05/19/20 12:14 97.5 F 88 20 145/82 H 92 L 05/19/20 08:00 97.4 F 96 18 92 L 05/19/20 04:00 97.9 F 95 20 138/67 91 L - Problem List & Annotations (1) COVID-19 SNOMED Code(s): 891273850 Code(s): U07.1 - COVID-19 Status: Acute (2) Failure of outpatient treatment SNOMED Code(s): 970352761 Code(s): Z78.9 - OTHER SPECIFIED HEALTH STATUS Status: Acute (3) Hypoxia SNOMED Code(s): 329659155 Code(s): R09.02 - HYPOXEMIA Status: Acute (4) Pneumonia SNOMED Code(s): 912859821 Code(s): J18.9 - PNEUMONIA, UNSPECIFIED ORGANISM Status: Acute - Problem List Review Problem List Initiated/Reviewed/Updated: Yes - My Orders Last 24 Hours: My Active Orders 05/19/20 11:15 Albuterol/Ipratropium [Combivent Respimat] See Dose Instructions INH Q12H - Plan Plan:: COVID-19 infection remdesivir, dexamethasone, Combivent scheduled BID, Lovenox 40 mg BID, encourage incentive spirometry, oxygen support as needed, telemetry. Patient denied convalescent plasma. Lasix 20mg IV push one time. <Vicky Yanes - Last Filed: 05/23/20 19:05> - Patient Data Vitals - Most Recent: Last Vital Signs Temp 35.6 C L 05/21/20 12:00 Pulse 84 05/21/20 08:00 Resp 20 05/21/20 12:00 BP 131/72 05/21/20 12:00 Pulse Ox 92 L 05/21/20 12:00 Med Orders - Current: Current Medications Discontinued Medications Acetaminophen (Tylenol Extra Strength) 1,000 mg PO ONETIME ONE Stop: 05/17/20 05:26 Last Admin: 05/17/20 05:39 Dose: 1,000 mg Documented by: Acetaminophen (Tylenol) 650 mg PO Q4H PRN PRN Reason: Pain (Mild 1-3)/fever Albuterol/Ipratropium (Combivent Respimat) 0 gm INH Q4H PRN PRN Reason: Dyspnea Albuterol/Ipratropium (Combivent Respimat) 0 gm INH Q12H [facility] Last Admin: 05/21/20 13:21 Dose: 1 puff Documented by: Dexamethasone (Dexamethasone) 6 mg PO DAILY [facility] Last Admin: 05/21/20 09:44 Dose: 6 mg Documented by: Enoxaparin Sodium (Lovenox) 40 mg SUBCUT Q24H [facility] Last Admin: 05/17/20 09:01 Dose: 40 mg Documented by: Enoxaparin Sodium (Lovenox) 40 mg SUBCUT BID [facility] Last Admin: 05/21/20 09:45 Dose: 40 mg Documented by: Furosemide (Lasix) 20 mg IVPUSH NOW ONE Stop: 05/19/20 11:07 Last Admin: 05/19/20 12:16 Dose: 20 mg Documented by: Sodium Chloride (Normal Saline) 1,000 mls @ 999 mls/hr IV .BOLUS ONE Stop: 05/17/20 06:25 Last Admin: 05/17/20 05:36 Dose: 999 mls/hr Documented by: Levofloxacin/Dextrose 750 mg/ (Premix) 150 mls @ 100 mls/hr IV ONETIME ONE Stop: 05/17/20 07:58 Last Admin: 05/17/20 07:03 Dose: 100 mls/hr Documented by: Remdesivir 200 mg/ Sodium (Chloride) 250 mls @ 250 mls/hr IV ONETIME ONE Stop: 05/17/20 08:03 Last Admin: 05/17/20 10:52 Dose: 250 mls/hr Documented by: Remdesivir 100 mg/ Sodium (Chloride) 100 mls @ 100 mls/hr IV Q24H [facility] Stop: 05/21/20 12:59 Remdesivir 100 mg/ Sodium (Chloride) 100 mls @ 100 mls/hr IV Q24H [facility] Stop: 05/21/20 11:59 Last Admin: 05/20/20 10:55 Dose: 100 mls/hr Documented by: Influenza Virus Vaccine (Pharmacy To Dose - Influenza Vaccine) 1 each IM ONETIME ONE Stop: 05/17/20 10:21 Last Admin: 05/18/20 19:58 Dose: Not Given Documented by: Influenza Virus Vaccine (Fluzone Quad [id number] Syringe) 60 mcg IM .ONCE ONE Stop: 05/19/20 10:31 Last Admin: 05/19/20 22:01 Dose: Not Given Documented by: Iopamidol (Isovue Multipack-370 (76%)) 100 ml IVPUSH ONETIME STA Stop: 05/17/20 07:07 Last Admin: 05/17/20 07:07 Dose: 100 ml Documented by: Loperamide HCl (Imodium) 2 mg PO Q6H PRN PRN Reason: Diarrhea Last Admin: 05/20/20 16:46 Dose: 2 mg Documented by: Ondansetron HCl (Zofran) 4 mg IVPUSH ONETIME ONE Stop: 05/17/20 05:30 Last Admin: 05/17/20 05:39 Dose: 4 mg Documented by: Potassium Chloride (Klor-Con M20) 40 meq PO ONETIME ONE Stop: 05/20/20 08:46 Last Admin: 05/20/20 10:55 Dose: 40 meq Documented by: Potassium Chloride (Klor-Con M20) 40 meq PO ONETIME ONE Stop: 05/21/20 07:55 Last Admin: 05/21/20 09:45 Dose: 40 meq Documented by: - Problem List & Annotations (1) Acute respiratory failure with hypoxia SNOMED Code(s): 13573349, 058085078 Code(s): J96.01 - ACUTE RESPIRATORY FAILURE WITH HYPOXIA Status: Acute (2) COVID-19 SNOMED Code(s): 305133517 Code(s): U07.1 - COVID-19 Status: Acute (3) Failure of outpatient treatment SNOMED Code(s): 346337555 Code(s): Z78.9 - OTHER SPECIFIED HEALTH STATUS Status: Acute (4) BMI 50.0-59.9, adult SNOMED Code(s): 585533691, 684513181 Code(s): Z68.43 - BODY MASS INDEX [BMI] 50.0-59.9, ADULT Status: Acute - Plan Plan:: I have seen and evaluated the patient. I have discussed findings and treatment plan with resident. I agree with the assessment and plan in the following note.
[2020-05-20 07:08] LABS: BLOOD UREA NITROGEN,BUN 17 mg/dL (7.0-18.0); CARBON DIOXIDE,CO2 31.7 mmol/L (21.0-32.0); CHLORIDE,CL 103 mmol/L (98-107); GLUCOSE RANDOM 93 mg/dL (74-106); POTASSIUM,K 3.2 mmol/L (3.5-5.1); SODIUM,NA 143 mmol/L (136-148)
[2020-05-20] MEDS ORDERED: Potassium Chloride 20 MEQ Tab.ER PO ONE (08:45)
[2020-05-20] MEDS: Dexamethasone 4 MG Tab PO SCH (08:59)
[2020-05-20] MEDS: Enoxaparin 40 MG/0.4 ML Syringe SUBCUT SCH ×2 (09:00→20:48)
[2020-05-20] MEDS: REMDESIVIR 100 MG in Sodium Chloride 0.9% 100 ML IV SCH (10:55)
[2020-05-20] MEDS: Albuterol/Ipratropium 4 GM Inhalation Spray INH SCH ×3 (10:56→22:42)
[2020-05-20] MEDS ORDERED: Loperamide 2 MG Cap PO PRN (11:55)
--- NOTE | 2020-05-20 11:56 | PCM.PN ---
- General Info Date of Service: 05/20/20 Subjective Update: Patient states less shortness of breath than yesterday. Denies fever, chills, nausea, vomiting, abdominal pain. States diarrhea. - Review of Systems Pulmonary: Reports: Shortness of Breath (improving). Denies: Cough Cardiovascular: Denies: Chest Pain Gastrointestinal: Denies: Abdominal Pain, Decreased Appetite, Nausea, Vomiting Neurological: Reports: Difficulty Walking. Denies: Confusion, Dizziness, Headache - Patient Data Vitals - Most Recent: Last Vital Signs Temp 97.2 F 05/20/20 08:51 Pulse 75 05/20/20 08:51 Resp 18 05/20/20 08:51 BP 147/80 H 05/20/20 08:51 Pulse Ox 95 05/20/20 08:51 Weight - Most Recent: 408 lb I&O - Last 24 Hours: Intake & Output 05/19/20 05/20/20 05/20/20 22:59 06:59 14:59 Intake Total 600 1000 Balance 600 1000 Lab Results Last 24 Hours: Laboratory Results - last 24 hr 05/20/20 05/20/20 05/20/20 Range/Units 05:53 05:53 05:53 WBC 4.58 (4.0-11.0) K/uL RBC 4.68 (4.50-5.90) M/uL Hgb 13.3 (13.0-17.0) g/dL Hct 41.9 (38.0-50.0) % MCV 89.5 (80.0-98.0) fL MCH 28.4 (27.0-32.0) pg MCHC 31.7 (31.0-37.0) g/dL RDW Std Deviation 43.2 (28.0-62.0) fl RDW Coeff of Mick 13 (11.0-15.0) % Plt Count 186 (150-400) K/uL MPV 10.00 (7.40-12.00) fL Neut % (Auto) 62.0 (48.0-80.0) % Lymph % (Auto) 30.8 (16.0-40.0) % Oliver % (Auto) 7.2 (0.0-15.0) % Eos % (Auto) 0.0 (0.0-7.0) % Baso % (Auto) 0.0 (0.0-1.5) % Neut # (Auto) 2.8 (1.4-5.7) K/uL Lymph # (Auto) 1.4 (0.6-2.4) K/uL Oliver # (Auto) 0.3 (0.0-0.8) K/uL Eos # (Auto) 0.0 (0.0-0.7) K/uL Baso # (Auto) 0.0 (0.0-0.1) K/uL Nucleated RBC % 0.0 /100WBC Nucleated RBCs # 0 K/uL Sodium 143 (136-148) mmol/L Potassium 3.2 L (3.5-5.1) mmol/L Chloride 103 (98-107) mmol/L Carbon Dioxide 31.7 (21.0-32.0) mmol/L BUN 17 (7.0-18.0) mg/dL Creatinine 0.9 (0.8-1.3) mg/dL Est Cr Clr Drug Dosing 138.10 mL/min Estimated GFR (MDRD) > 60.0 ml/min Glucose 93 (74-106) mg/dL Calcium 8.2 L (8.5-10.1) mg/dL Magnesium 2.4 (1.8-2.4) mg/dL Total Bilirubin 0.7 (0.2-1.0) mg/dL AST 41 H (15-37) IU/L ALT 43 (14-63) IU/L Alkaline Phosphatase 42 L (46-116) U/L Total Protein 6.2 L (6.4-8.2) g/dL Albumin 2.4 L (3.4-5.0) g/dL Globulin 3.8 (2.6-4.0) g/dL Albumin/Globulin Ratio 0.6 L (0.9-1.6) Ricardo Results Last 24 Hours: Microbiology 05/17/20 05:45 Aerobic Blood Culture - Preliminary Blood - Venous - Lab Draw NO GROWTH AFTER 3 DAYS Anaerobic Blood Culture - Preliminary NO GROWTH AFTER 3 DAYS 05/17/20 05:26 Aerobic Blood Culture - Preliminary Blood - Venous NO GROWTH AFTER 3 DAYS Anaerobic Blood Culture - Final Med Orders - Current: Current Medications Acetaminophen (Tylenol) 650 mg PO Q4H PRN PRN Reason: Pain (Mild 1-3)/fever Albuterol/Ipratropium (Combivent Respimat) 0 gm INH Q12H [facility] Last Admin: 05/20/20 10:56 Dose: 1 puff Documented by: Dexamethasone (Dexamethasone) 6 mg PO DAILY [facility] Last Admin: 05/20/20 08:59 Dose: 6 mg Documented by: Enoxaparin Sodium (Lovenox) 40 mg SUBCUT BID [facility] Last Admin: 05/20/20 09:00 Dose: 40 mg Documented by: Remdesivir 100 mg/ Sodium (Chloride) 100 mls @ 100 mls/hr IV Q24H [facility] Stop: 05/21/20 11:59 Last Admin: 05/20/20 10:55 Dose: 100 mls/hr Documented by: Discontinued Medications Acetaminophen (Tylenol Extra Strength) 1,000 mg PO ONETIME ONE Stop: 05/17/20 05:26 Last Admin: 05/17/20 05:39 Dose: 1,000 mg Documented by: Albuterol/Ipratropium (Combivent Respimat) 0 gm INH Q4H PRN PRN Reason: Dyspnea Enoxaparin Sodium (Lovenox) 40 mg SUBCUT Q24H [facility] Last Admin: 05/17/20 09:01 Dose: 40 mg Documented by: Furosemide (Lasix) 20 mg IVPUSH NOW ONE Stop: 05/19/20 11:07 Last Admin: 05/19/20 12:16 Dose: 20 mg Documented by: Sodium Chloride (Normal Saline) 1,000 mls @ 999 mls/hr IV .BOLUS ONE Stop: 05/17/20 06:25 Last Admin: 05/17/20 05:36 Dose: 999 mls/hr Documented by: Levofloxacin/Dextrose 750 mg/ (Premix) 150 mls @ 100 mls/hr IV ONETIME ONE Stop: 05/17/20 07:58 Last Admin: 05/17/20 07:03 Dose: 100 mls/hr Documented by: Remdesivir 200 mg/ Sodium (Chloride) 250 mls @ 250 mls/hr IV ONETIME ONE Stop: 05/17/20 08:03 Last Admin: 05/17/20 10:52 Dose: 250 mls/hr Documented by: Remdesivir 100 mg/ Sodium (Chloride) 100 mls @ 100 mls/hr IV Q24H [facility] Stop: 05/21/20 12:59 Influenza Virus Vaccine (Pharmacy To Dose - Influenza Vaccine) 1 each IM ONETI ME ONE Stop: 05/17/20 10:21 Last Admin: 05/18/20 19:58 Dose: Not Given Documented by: Influenza Virus Vaccine (Fluzone Quad [id number] Syringe) 60 mcg IM .ONCE ONE Stop: 05/19/20 10:31 Last Admin: 05/19/20 22:01 Dose: Not Given Documented by: Iopamidol (Isovue Multipack-370 (76%)) 100 ml IVPUSH ONETIME STA Stop: 05/17/20 07:07 Last Admin: 05/17/20 07:07 Dose: 100 ml Documented by: Ondansetron HCl (Zofran) 4 mg IVPUSH ONETIME ONE Stop: 05/17/20 05:30 Last Admin: 05/17/20 05:39 Dose: 4 mg Documented by: Potassium Chloride (Klor-Con M20) 40 meq PO ONETIME ONE Stop: 05/20/20 08:46 Last Admin: 05/20/20 10:55 Dose: 40 meq Documented by: - Exam Quality Assessment: Supplemental Oxygen General: Alert, Oriented Lungs: Clear to Auscultation, Normal Respiratory Effort Cardiovascular: Regular Rate, Regular Rhythm GI/Abdominal Exam: Normal Bowel Sounds, Soft, Non-Tender Psy/Mental Status: Alert Sepsis Event Note - Evaluation Sepsis Screening Result: No Definite Risk - Focused Exam Vital Signs: Vital Signs Temp Pulse Resp BP Pulse Ox 05/20/20 08:51 97.2 F 75 18 147/80 H 95 05/20/20 04:00 97.4 F 77 18 118/49 L 92 L 05/20/20 00:00 96.5 F L 79 18 103/46 L 92 L - Problem List & Annotations (1) COVID-19 SNOMED Code(s): 477838093 Code(s): U07.1 - COVID-19 Status: Acute Current Visit: Yes (2) Failure of outpatient treatment SNOMED Code(s): 658905835 Code(s): Z78.9 - OTHER SPECIFIED HEALTH STATUS Status: Acute Current Visit: Yes (3) Hypoxia SNOMED Code(s): 991136515 Code(s): R09.02 - HYPOXEMIA Status: Acute Current Visit: Yes (4) Pneumonia SNOMED Code(s): 466635794 Code(s): J18.9 - PNEUMONIA, UNSPECIFIED ORGANISM Status: Acute Current Visit: Yes - Problem List Review Problem List Initiated/Reviewed/Updated: Yes - My Orders Last 24 Hours: My Active Orders 05/19/20 11:15 Albuterol/Ipratropium [Combivent Respimat] See Dose Instructions INH Q12H 05/20/20 08:47 CULTURE URINE [] Routine - Plan Plan:: COVID-19 infection remdesivir, dexamethasone, Combivent scheduled BID, Lovenox 40 mg BID, encourage incentive spirometry, oxygen support as needed, telemetry. Patient denied convalescent plasma. Loperamide for diarrhea Hypokalemia- 3.2, 40meq K prescribed
[2020-05-21 05:56] LABS: BLOOD UREA NITROGEN,BUN 19 mg/dL (7.0-18.0); CARBON DIOXIDE,CO2 33.2 mmol/L (21.0-32.0); CHLORIDE,CL 104 mmol/L (98-107); GLUCOSE RANDOM 93 mg/dL (74-106); POTASSIUM,K 3.1 mmol/L (3.5-5.1); SODIUM,NA 143 mmol/L (136-148)
[2020-05-21] MEDS ORDERED: Potassium Chloride 20 MEQ Tab.ER PO ONE (07:54)
[2020-05-21] MEDS: Dexamethasone 4 MG Tab PO SCH (09:44)
[2020-05-21] MEDS: Enoxaparin 40 MG/0.4 ML Syringe SUBCUT SCH (09:45)
[2020-05-21 09:55] VITALS: PULSE 84
[2020-05-21 12:39] VITALS: BP 131/72
[2020-05-21] MEDS: Albuterol/Ipratropium 4 GM Inhalation Spray INH SCH (13:21)
--- NOTE | 2020-05-21 15:51 | PCM.DCSUM1 ---
<Jovi Perea - Last Filed: 05/21/20 15:52> Discharge Summary - Hospital Course Free Text/Narrative:: 29 year old male admitted for acute hypoxic respiratory failure secondary to COVID-19 infection. Patient states that he tested positive for Covid this past Sunday and was treated with steroids, albuterol, antibiotics. Patient presented to the ED with significant shortness of breath despite using all prescribed medications. Patient denies chest pain, fever, chills, nausea, vomiting, diarrhea. Patient states decreased appetite. PMH asthma. On admission patient required 5 L oxygen via nasal cannula with oxygen saturation 94%. WBC 4.2, D-dimer elevated 0.62, CTA negative for pulmonary embolism but does show moderate diffuse multifocal groundglass opacifications, suggestive of COVID-19 infection. Patient started on remdesivir, dexamethasone, Combivent, Lovenox 40mg BID, oxygen support, encouraged to use incentive spirometry. Patient was discharged home without Home O2. Per home oxygen evaluation, patient was at 94% O2 saturation on room air, 92% O2 saturation with ambulation. Patient prescribed dexamethasone X 5 days, Combivent inhaler. - Discharge Data Discharge Date: 05/21/20 Discharge Disposition: Home, Self-Care 01 Condition: Stable - Referral to Home Health Primary Care Physician: Anabela Martinez DO - Discharge Diagnosis/Problem(s) (1) COVID-19 SNOMED Code(s): 867358066 ICD Code: U07.1 - COVID-19 Status: Acute (2) Failure of outpatient treatment SNOMED Code(s): 864667303 ICD Code: Z78.9 - OTHER SPECIFIED HEALTH STATUS Status: Acute (3) Hypoxia SNOMED Code(s): 903018704 ICD Code: R09.02 - HYPOXEMIA Status: Acute (4) Pneumonia SNOMED Code(s): 396711026 ICD Code: J18.9 - PNEUMONIA, UNSPECIFIED ORGANISM Status: Acute - Patient Instructions Diet: Heart Healthy Diet Driving: May Drive Today Showering/Bathing: May Shower Notify Provider of: Fever, Increased Pain, Swelling and Redness, Drainage, Nausea and/or Vomiting Other/Special Instructions: Report to ED if expierencing severe shortness of breath, chest pain, dizziness. - Discharge Plan *PRESCRIPTION DRUG MONITORING PROGRAM REVIEWED*: Not Applicable *COPY OF PRESCRIPTION DRUG MONITORING REPORT IN PATIENT NELLIE: Not Applicable Prescriptions/Med Rec: Albuterol/Ipratropium [Combivent Respimat] 1 puff INH Q12H PRN #1 inhaler PRN Reason: Dyspnea dexAMETHasone [Dexamethasone] 6 mg PO DAILY 5 Days #8 tablet Home Medications: Home Meds Budesonide/Formoterol Fumarate [Symbicort 160-4.5 Mcg Inhaler] 2 puff IH BID #1 canister 07/01/16 [Rx] Albuterol/Ipratropium [Combivent Respimat] 1 puff INH Q12H PRN #1 inhaler 05/21/20 [Rx] dexAMETHasone [Dexamethasone] 6 mg PO DAILY 5 Days #8 tablet 05/21/20 [Rx] Patient Handouts: COVID-19 Frequently Asked Questions, COVID-19, COVID-19: How to Protect Yourself and Others - [facility], Albuterol; Ipratropium inhalation aerosol, Coronavirus Information 08/25/19, Dexamethasone tablets, Community-Acquired Pneumonia, Adult, [id number], Prevent the Spread of COVID-19 if You Are Sick - [facility] Referrals: Anabela Martinez DO [Primary Care Provider] - 06/01/20 9:45 am - Discharge Summary/Plan Comment DC Time >30 min.: Yes - Review of Systems General: Denies: Fever, Chills Pulmonary: Reports: Shortness of Breath (patient states mild SOB with exertion). Denies: Cough Gastrointestinal: Denies: Abdominal Pain, Nausea, Vomiting Neurological: Denies: Confusion, Dizziness, Headache - Patient Data Vitals - Most Recent: Last Vital Signs Temp 96.1 F L 05/21/20 12:00 Pulse 84 05/21/20 08:00 Resp 20 05/21/20 12:00 BP 131/72 05/21/20 12:00 Pulse Ox 92 L 05/21/20 12:00 Weight - Most Recent: 185.066 kg I&O - Last 24 hours: Intake & Output 05/21/20 05/21/20 05/21/20 06:59 14:59 22:59 Intake Total 800 Balance 800 Lab Results - Last 24 hrs: Laboratory Results - last 24 hr 05/21/20 05/21/20 Range/Units 05:00 05:00 WBC 5.56 (4.0-11.0) K/uL RBC 4.61 (4.50-5.90) M/uL Hgb 13.1 (13.0-17.0) g/dL Hct 41.0 (38.0-50.0) % MCV 88.9 (80.0-98.0) fL MCH 28.4 (27.0-32.0) pg MCHC 32.0 (31.0-37.0) g/dL RDW Std Deviation 42.2 (28.0-62.0) fl RDW Coeff of Mick 13 (11.0-15.0) % Plt Count 201 (150-400) K/uL MPV 10.10 (7.40-12.00) fL Neut % (Auto) 68.5 (48.0-80.0) % Lymph % (Auto) 23.0 (16.0-40.0) % [place] % (Auto) 8.3 (0.0-15.0) % Eos % (Auto) 0.0 (0.0-7.0) % Baso % (Auto) 0.2 (0.0-1.5) % Neut # (Auto) 3.8 (1.4-5.7) K/uL Lymph # (Auto) 1.3 (0.6-2.4) K/uL [place] # (Auto) 0.5 (0.0-0.8) K/uL Eos # (Auto) 0.0 (0.0-0.7) K/uL Baso # (Auto) 0.0 (0.0-0.1) K/uL Nucleated RBC % 0.0 /100WBC Nucleated RBCs # 0 K/uL Sodium 143 (136-148) mmol/L Potassium 3.1 L (3.5-5.1) mmol/L Chloride 104 (98-107) mmol/L Carbon Dioxide 33.2 H (21.0-32.0) mmol/L BUN 19 H (7.0-18.0) mg/dL Creatinine 0.9 (0.8-1.3) mg/dL Est Cr Clr Drug Dosing 138.10 mL/min Estimated GFR (MDRD) > 60.0 ml/min Glucose 93 (74-106) mg/dL Calcium 8.3 L (8.5-10.1) mg/dL Total Bilirubin 0.8 (0.2-1.0) mg/dL AST 33 (15-37) IU/L ALT 43 (14-63) IU/L Alkaline Phosphatase 39 L (46-116) U/L Total Protein 6.2 L (6.4-8.2) g/dL Albumin 2.5 L (3.4-5.0) g/dL Globulin 3.7 (2.6-4.0) g/dL Albumin/Globulin Ratio 0.7 L (0.9-1.6) ADITI Results - Last 24 hrs: Microbiology 05/17/20 05:45 Aerobic Blood Culture - Preliminary Blood - Venous - Lab Draw NO GROWTH AFTER 4 DAYS Anaerobic Blood Culture - Preliminary NO GROWTH AFTER 4 DAYS 05/17/20 05:26 Aerobic Blood Culture - Preliminary Blood - Venous NO GROWTH AFTER 4 DAYS Anaerobic Blood Culture - Final Med Orders - Current: Current Medications Acetaminophen (Tylenol) 650 mg PO Q4H PRN PRN Reason: Pain (Mild 1-3)/fever Albuterol/Ipratropium (Combivent Respimat) 0 gm INH Q12H [facility] Last Admin: 05/21/20 13:21 Dose: 1 puff Documented by: Dexamethasone (Dexamethasone) 6 mg PO DAILY [facility] Last Admin: 05/21/20 09:44 Dose: 6 mg Documented by: Enoxaparin Sodium (Lovenox) 40 mg SUBCUT BID [facility] Last Admin: 05/21/20 09:45 Dose: 40 mg Documented by: Loperamide HCl (Imodium) 2 mg PO Q6H PRN PRN Reason: Diarrhea Last Admin: 05/20/20 16:46 Dose: 2 mg Documented by: Discontinued Medications Acetaminophen (Tylenol Extra Strength) 1,000 mg PO ONETIME ONE Stop: 05/17/20 05:26 Last Admin: 05/17/20 05:39 Dose: 1,000 mg Documented by: Albuterol/Ipratropium (Combivent Respimat) 0 gm INH Q4H PRN PRN Reason: Dyspnea Enoxaparin Sodium (Lovenox) 40 mg SUBCUT Q24H [facility] Last Admin: 05/17/20 09:01 Dose: 40 mg Documented by: Furosemide (Lasix) 20 mg IVPUSH NOW ONE Stop: 05/19/20 11:07 Last Admin: 05/19/20 12:16 Dose: 20 mg Documented by: Sodium Chloride (Normal Saline) 1,000 mls @ 999 mls/hr IV .BOLUS ONE Stop: 05/17/20 06:25 Last Admin: 05/17/20 05:36 Dose: 999 mls/hr Documented by: Levofloxacin/Dextrose 750 mg/ (Premix) 150 mls @ 100 mls/hr IV ONETIME ONE Stop: 05/17/20 07:58 Last Admin: 05/17/20 07:03 Dose: 100 mls/hr Documented by: Remdesivir 200 mg/ Sodium (Chloride) 250 mls @ 250 mls/hr IV ONETIME ONE Stop: 05/17/20 08:03 Last Admin: 05/17/20 10:52 Dose: 250 mls/hr Documented by: Remdesivir 100 mg/ Sodium (Chloride) 100 mls @ 100 mls/hr IV Q24H [facility] Stop: 05/21/20 12:59 Remdesivir 100 mg/ Sodium (Chloride) 100 mls @ 100 mls/hr IV Q24H [facility] Stop: 05/21/20 11:59 Last Admin: 05/20/20 10:55 Dose: 100 mls/hr Documented by: Influenza Virus Vaccine (Pharmacy To Dose - Influenza Vaccine) 1 each IM ONETIME ONE Stop: 05/17/20 10:21 Last Admin: 05/18/20 19:58 Dose: Not Given Documented by: Influenza Virus Vaccine (Fluzone Quad [id number] Syringe) 60 mcg IM .ONCE ONE Stop: 05/19/20 10:31 Last Admin: 05/19/20 22:01 Dose: Not Given Documented by: Iopamidol (Isovue Multipack-370 (76%)) 100 ml IVPUSH ONETIME STA Stop: 05/17/20 07:07 Last Admin: 05/17/20 07:07 Dose: 100 ml Documented by: Ondansetron HCl (Zofran) 4 mg IVPUSH ONETIME ONE Stop: 05/17/20 05:30 Last Admin: 05/17/20 05:39 Dose: 4 mg Documented by: Potassium Chloride (Klor-Con M20) 40 meq PO ONETIME ONE Stop: 05/20/20 08:46 Last Admin: 05/20/20 10:55 Dose: 40 meq Documented by: Potassium Chloride (Klor-Con M20) 40 meq PO ONETIME ONE Stop: 05/21/20 07:55 Last Admin: 05/21/20 09:45 Dose: 40 meq Documented by: - Exam General: Reports: Alert, Oriented Lungs: Reports: Clear to Auscultation, Normal Respiratory Effort Cardiovascular: Reports: Regular Rate, Regular Rhythm GI/Abdominal Exam: Normal Bowel Sounds, Soft, Non-Tender Psy/Mental Status: Reports: Alert <Gurmeet Garcia - Last Filed: 05/22/20 15:27> Discharge Summary - Referral to Home Health Primary Care Physician: Anabela Martinez DO - Patient Data Vitals - Most Recent: Last Vital Signs Temp 35.6 C L 05/21/20 12:00 Pulse 84 05/21/20 08:00 Resp 20 05/21/20 12:00 BP 131/72 05/21/20 12:00 Pulse Ox 92 L 05/21/20 12:00 ADITI Results - Last 24 hrs: Microbiology 05/20/20 12:35 Urine Culture - Final Urine, Voided MIXED DEONNA 1,000-10,000 CFU/ML 05/17/20 05:45 Aerobic Blood Culture - Final Blood - Venous - Lab Draw NO GROWTH AFTER 5 DAYS Anaerobic Blood Culture - Final NO GROWTH AFTER 5 DAYS 05/17/20 05:26 Aerobic Blood Culture - Final Blood - Venous NO GROWTH AFTER 5 DAYS Anaerobic Blood Culture - Final Med Orders - Current: Current Medications Discontinued Medications Acetaminophen (Tylenol Extra Strength) 1,000 mg PO ONETIME ONE Stop: 05/17/20 05:26 Last Admin: 05/17/20 05:39 Dose: 1,000 mg Documented by: Acetaminophen (Tylenol) 650 mg PO Q4H PRN PRN Reason: Pain (Mild 1-3)/fever Albuterol/Ipratropium (Combivent Respimat) 0 gm INH Q4H PRN PRN Reason: Dyspnea Albuterol/Ipratropium (Combivent Respimat) 0 gm INH Q12H [facility] Last Admin: 05/21/20 13:21 Dose: 1 puff Documented by: Dexamethasone (Dexamethasone) 6 mg PO DAILY [facility] Last Admin: 05/21/20 09:44 Dose: 6 mg Documented by: Enoxaparin Sodium (Lovenox) 40 mg SUBCUT Q24H [facility] Last Admin: 05/17/20 09:01 Dose: 40 mg Documented by: Enoxaparin Sodium (Lovenox) 40 mg SUBCUT BID [facility] Last Admin: 05/21/20 09:45 Dose: 40 mg Documented by: Furosemide (Lasix) 20 mg IVPUSH NOW ONE Stop: 05/19/20 11:07 Last Admin: 05/19/20 12:16 Dose: 20 mg Documented by: Sodium Chloride (Normal Saline) 1,000 mls @ 999 mls/hr IV .BOLUS ONE Stop: 05/17/20 06:25 Last Admin: 05/17/20 05:36 Dose: 999 mls/hr Documented by: Levofloxacin/Dextrose 750 mg/ (Premix) 150 mls @ 100 mls/hr IV ONETIME ONE Stop: 05/17/20 07:58 Last Admin: 05/17/20 07:03 Dose: 100 mls/hr Documented by: Remdesivir 200 mg/ Sodium (Chloride) 250 mls @ 250 mls/hr IV ONETIME ONE Stop: 05/17/20 08:03 Last Admin: 05/17/20 10:52 Dose: 250 mls/hr Documented by: Remdesivir 100 mg/ Sodium (Chloride) 100 mls @ 100 mls/hr IV Q24H [facility] Stop: 05/21/20 12:59 Remdesivir 100 mg/ Sodium (Chloride) 100 mls @ 100 mls/hr IV Q24H [facility] Stop: 05/21/20 11:59 Last Admin: 05/20/20 10:55 Dose: 100 mls/hr Documented by: Influenza Virus Vaccine (Pharmacy To Dose - Influenza Vaccine) 1 each IM ONETIME ONE Stop: 05/17/20 10:21 Last Admin: 05/18/20 19:58 Dose: Not Given Documented by: Influenza Virus Vaccine (Fluzone Quad [id number] Syringe) 60 mcg IM .ONCE ONE Stop: 05/19/20 10:31 Last Admin: 05/19/20 22:01 Dose: Not Given Documented by: Iopamidol (Isovue Multipack-370 (76%)) 100 ml IVPUSH ONETIME STA Stop: 05/17/20 07:07 Last Admin: 05/17/20 07:07 Dose: 100 ml Documented by: Loperamide HCl (Imodium) 2 mg PO Q6H PRN PRN Reason: Diarrhea Last Admin: 05/20/20 16:46 Dose: 2 mg Documented by: Ondansetron HCl (Zofran) 4 mg IVPUSH ONETIME ONE Stop: 05/17/20 05:30 Last Admin: 05/17/20 05:39 Dose: 4 mg Documented by: Potassium Chloride (Klor-Con M20) 40 meq PO ONETIME ONE Stop: 05/20/20 08:46 Last Admin: 05/20/20 10:55 Dose: 40 meq Documented by: Potassium Chloride (Klor-Con M20) 40 meq PO ONETIME ONE Stop: 05/21/20 07:55 Last Admin: 05/21/20 09:45 Dose: 40 meq Documented by: - Free Text/Narrative Note: I have seen and evaluated the patient. I have discussed findings and treatment plan with resident. I agree with the assessment and plan in the following note.
== END 2020-05-21 15:25 | disposition home or self-care (01) | DRG 137 ==
LOC: MW.ED 05:04 → MW.MS 07:49
PROVIDERS: ADMIT Student in an Organized Health Care Education/Training Program; ATTEND Student in an Organized Health Care Education/Training Program
PROC: XW033E5 Introduction of Remdesivir Anti-infective into Peripheral Vein, Percutaneous Approach, New Technology Group 5 (ICD-10-PCS; principal; 2020-05-17)
DX: U07.1 COVID-19 (principal); J96.01 Acute respiratory failure with hypoxia; E66.9 Obesity, unspecified; J12.89 Other viral pneumonia; Z79.52 Long term (current) use of systemic steroids; Z78.9 Other specified health status; Z79.899 Other long term (current) drug therapy; Z88.5 Allergy status to narcotic agent; Z88.0 Allergy status to penicillin; Z91.018 Allergy to other foods; Z91.013 Allergy to seafood; Z98.890 Other specified postprocedural states; E87.6 Hypokalemia; Z68.43 Body mass index [BMI] 50.0-59.9, adult
CPT/HCPCS: 36415; 71045; 71045-26; 71275; 71275-26; 80053; 81001; 82550; 83735; 84484; 85025; 85379; 85610; 85730; 87040; 87086; 93005; 93010; 94640; 96365; 96375; 99285-25; 99291; A9270-GY; J1650; J1940; J1956; J2405; J7030; J7050; J8540; Q9967